=== PATIENT | female | born 1960 | race Two or more races ===

== ENCOUNTER 2024-10-28 19:20 | Emergency (ER) | payer MEDICAID, OTHER ==
[~2024-10-28] VITALS: Ht 160 cm; Wt 77.3 kg
[2024-10-28 19:25] VITALS: BP 157/91; PULSE 127; RESP 22; TEMP 97.8; O2SAT 97
[2024-10-28] MEDS: FAMOTIDINE (10MG/ML) 2ML VL IV ONE (19:41)
[2024-10-28] MEDS: DexAMETHasone SOD PHOS 10MG/1ML VIAL INJ IV ONE (19:41)
[2024-10-28] MEDS: diphenhdrAMINE HCL 50 MG/1 ML VL IV ONE (19:43)
[2024-10-28] MEDS ORDERED: DIPH25CA51 PO (21:42)
[2024-10-28] MEDS ORDERED: PRED20TA2 PO (21:42)
--- NOTE | 2024-10-28 21:42 | ED.PDOC ---
HPI Allergic reaction HPI Comments 63-year-old female complaining of the itching and swelling rash all over her face and in her mouth and throat. Patient states approximate 20 minutes ago she took a pain medication which was given to her by her . got the medication from [place]. Medication was a combination of diclofenac and glucosa mine. States she was started feeling itching and swelling in her face and eyelids. Started developing rash in her palms and hands extremities and torso. Patient feels mild tightness in her throat. No prior known allergies. 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 History Constitutional: denies: chills, diaphoresis, fatigue, fever, malaise, sweats, weakness, others EENTM: denies: blurred vision, double vision, ear bleeding, ear discharge, ear drainage, ear pain, ear ringing, eye pain, eye redness, hearing loss, mouth pain, mouth swelling, nasal discharge, nose bleeding, nose congestion, nose pain, photophobia, tearing, throat pain, throat swelling, voice changes, others Respiratory: denies: cough, hemoptysis, orthopnea, SOB at rest, shortness of breath, SOB with excertion, stridor, wheezing, others Cardiovascular: denies: chest pain, dizzy spells, diaphoresis, Dyspnea on exertion, edema, irregular heart beat, left arm pain, lightheadedness, palpitations, PND, syncope, others Gastrointestinal: denies: abdomen distended, abdominal pain, blood streaked bowels, constipated, diarrhea, dysphagia, difficulty swallowing, hematemesis, melena, nausea, poor appetite, poor fluid intake, rectal bleeding, rectal pain, vomiting, others Genitourinary: denies: abnormal vagina bleeding, burning, dyspareunia, dysuria, flank pain, frequency, hematuria, incontinence, pain, , vagina discharge, urgency, others Neurological: denies: dizziness, fainting, headache, left sided numbness, left sided weakness, numbness, paresthesia, pre-existing deficit, right sided numbness, right sided weakness, seizure, speech problems, tingling, tremors, weakness, others Musculoskeletal: denies: back pain, gout, joint pain, joint swelling, muscle pain, muscle stiffness, neck pain, others Integumetry: reports: rash; denies: bruises, change in color, change in hair/nails, dryness, laceration, lesions, lumps, wounds, others Allergic/Immunocompromised: denies: Difficulty Healing, Frequent Infections, Hives, Itching, others Hematologic/Lymphatic: denies: anemia, blood clots, easy bleeding, easy bruising, swollen glands, others Endocrine: denies: excessive hunger, excessive sweating, excessive thirst, excessive urination, flushing, intolerance to cold, intolerance to heat, unexplained weight gain, unexplained weight loss, others Physical Exam General Appearance: No Apparent Distress, Normal HEENT: Normal ENT Inspection, Pharynx Normal, TMs Normal Neck: Full Range of Motion, Non-Tender, Normal, Normal Inspection Respiratory: Chest Non-Tender, Lungs Clear, No Accessory Muscle Use, No Respiratory Distress, Normal Breath Sounds Cardiovascular: No Edema, No JVD, No Murmur, No Gallop, Normal Peripheral Pulses, Regular Rate/Rhythm Breast Exam: Deferred Gastrointestinal: No Organomegaly, Non Tender, No Pulsatile Mass, Normal Bowel Sounds, Soft Genitalia: Deferred Pelvic: Deferred Rectal: Deferred Extremities: No calf tenderness, Normal capillary refill, Normal inspection, Normal range of motion, Non-tender, No pedal edema Musculoskeletal : Apperance: Normal Neurologic: Alert, forging press lever tender II-XII nml as Tested, No Motor Deficits, Normal Affect, Normal Mood, No Sensory Deficits Cerebellar Function: Normal Reflexes: Normal Skin: Dry, Normal Color, Rash (Erythemic rash noted all over face upper extremity and torso. No swelling of the mouth or tongue.), Warm Lymphatic: No Adenopathy Was a procedure done? Was a procedure done?: No Differential diagnosis (all) Differential Diagnosis: Anaphylaxis, Angioedema, Bronchospasm, Drug Reaction, Hypotension X-Ray, Labs, Meds, VS Vital Signs Date Time Temp Pulse Resp B/P (MAP) Pulse Ox O2 Delivery O2 Flow Rate FiO2 10/28/24 19:25 97 Room Air* 0 21 10/28/24 19:25 97.8 127 22 157/91 (113) 97 Current Medications Medications (Trade) Dose Ordered Sig/Neena Route Start Time Stop Time Status Last Admin Dexamethasone Sodium Phosphate (Decadron Injection) 10 mg ONCE ONCE IV 10/28/24 19:30 10/28/24 19:31 DC 10/28/24 19:41 Diphenhydramine HCl (Benadryl Injection) 50 mg ONCE ONCE IV 10/28/24 19:30 10/28/24 19:31 DC 10/28/24 19:43 Famotidine (Pepcid Injection) 20 mg ONCE ONCE IV 10/28/24 19:30 10/28/24 19:31 DC 10/28/24 19:41 X-Ray, Labs, Meds, VS Comment Imaging: X-rays and CT scans were reviewed and interpreted by this provider, imaging shows no fractures and no pathological disease. Pending radiology review. Laboratory: Labs reviewed and interpreted by this provider. No significant abnormalities noted. Patient has prior medical visits reviewed. Med reconciliation performed Vital signs reviewed Time of 1ST Reevaluation: 21:42 Reevaluation 1ST: Improved Patient Education/Counseling: Diagnosis, Treatment, Need For Follow Up (Follow up with the PCP in the next 2-4 days. Follow up in the emergency department if symptoms worsened.) Family Education/Counseling: Diagnosis Departure 1 Departure Time of Disposition: 21:41 Impression: Primary Impression: Allergic reaction Qualified Codes: T78.40XA - Allergy, unspecified, initial encounter Disposition: HOME / SELF CARE / HOMELESS Condition: Fair e-Prescriptions Diphenhydramine Hcl (BENADRYL CAPSULE) 25 Mg Cp 25 MG PO QID PRN, #60 CAP Prov: CARMENCITA JEFFERS 10/28/24 Prednisone (Prednisone) 20 Mg Tab 20 MG PO DAILY for 5 Days, #5 MG Prov: CARMENCITA JEFFERS 10/28/24 Discharged With: Self Critical Care Note Critical Care Time?: No Stability Stability form required: No Heart Score Heart Score: Heart Score Response (Comments) Value History N/A 0 EKG N/A 0 Age N/A 0 Risk Factors N/A 0 Troponin N/A 0 Total 0 CARMENCITA JEFFERS Oct 28, 2024 21:42
== END 2024-10-28 22:10 | disposition home or self-care (01) ==
LOC: ER 19:20
DX: T78.40XA Allergy, unspecified, initial encounter (principal); X58.XXXA Exposure to other specified factors, initial encounter
CPT/HCPCS: 96374; 96375; 99284; J1100; J1200; J3490